=== PATIENT | female | born 1950 | race Caucasian/White ===

== ENCOUNTER 2017-10-12 12:24 | Emergency (ER) | payer OTHER ==
[~2017-10-12] VITALS: Ht 167.6 cm; Wt 77.0 kg
[~2017-10-12 12:24] MED LIST: ATORVASTATIN CA10 MG PO; BACTRIM DS1 TAB PO; CEPHALEXIN500 MG PO; FAMCICLOVIR500 MG PO; FOLIC ACID1 MG PO; MULTIVITAMIN PO; PERCOCET 5/321 COMBO PO; PREMARIN0.3 MG PO; PYRIDIUM200 MG PO; VASERETIC PO; [UNRECOGNIZED DRUG - OTHER]
[2017-10-12] MEDS ORDERED: MOTRIN400 MG PO (12:54)
[2017-10-12] MEDS ORDERED: HYDROCO/APAP1 TA9 PO (13:33)
[2017-10-12] MEDS ORDERED: ENALAPR/HCTZ1 TA1 PO (13:36)
[2017-10-12] MEDS ORDERED: [UNRECOGNIZED DRUG - OTHER] PO (13:38)
[2017-10-12 14:20] VITALS: BP 129/74
== END 2017-10-12 14:20 | disposition home or self-care (01) | DRG 563 ==
LOC: ED 12:24
PROC: 2W3DX1Z Immobilization of Left Lower Arm using Splint (ICD-10-PCS; principal; 2017-10-12)
DX: S52.122A Displaced fracture of head of left radius, initial encounter for closed fracture (principal); I10 Essential (primary) hypertension; M81.0 Age-related osteoporosis without current pathological fracture; W01.0XXA Fall on same level from slipping, tripping and stumbling without subsequent striking against object, initial encounter